=== PATIENT | male | born 1990 | race Caucasian/White ===

== ENCOUNTER 2022-12-01 21:11 | Emergency (ER) | payer OTHER ==
[2022-12-01 21:20] VITALS: BP 133/85; PULSE 82; RESP 18; TEMP 98; BMI 28.2
[2022-12-01] MEDS ORDERED: IBUPROFEN 400 MG TABLET (FP) PO ONE ×2 (22:42→22:54)
[2022-12-02] MEDS ORDERED: ACETAMINOPHEN 500 MG TABLET (FP) PO ONE (01:12)
[2022-12-02] MEDS ORDERED: ACETAMINOPHEN 500 MG TABLET (FP) ONE (01:13)
== END 2022-12-02 01:17 | disposition home or self-care (01) ==
LOC: JERFT 21:11
PROC: 2W39X1Z Immobilization of Left Upper Extremity using Splint (ICD-10-PCS; principal; 2022-12-01)
DX: M25.522 Pain in left elbow (principal)
CPT/HCPCS: 73070-TC-LT-FY; 99283-25